=== PATIENT | male | born 1985 | race Caucasian/White ===

== ENCOUNTER 2020-10-22 11:11 | Emergency (ER) | payer SELFPAY ==
[2020-10-22 11:19] VITALS: BP 139/83; PULSE 97; TEMP 98.4; BMI 56.5
[2020-10-22] MEDS ORDERED: NAPROXEN 500 MG TABLET PO ONE (13:37)
[2020-10-22] MEDS ORDERED: NAPROXEN 500 MG TABLET ONE (13:44)
== END 2020-10-22 13:46 | disposition home or self-care (01) ==
LOC: JERFT 11:11 → JER 11:11 → JERFT 13:46
DX: M79.604 Pain in right leg (principal); E66.09 Other obesity due to excess calories
CPT/HCPCS: 93971-TC; 99283-25

== ENCOUNTER 2023-05-04 09:30 | Emergency (ER) | payer OTHER ==
[2023-05-04 09:33] VITALS: BP 134/70; PULSE 83; RESP 19; TEMP 98.1; BMI 39.9
[2023-05-04] MEDS ORDERED: ACETAMINOPHEN 500 MG TABLET (FP) PO ONE (10:35)
[2023-05-04] MEDS ORDERED: DIPHTH,PERTUSS(ACELL),TET 0.5 ML DISP.SYRIN IM ONE ×2 (10:35→11:27)
[2023-05-04] MEDS ORDERED: ACETAMINOPHEN 500 MG TABLET (FP) ONE (11:27)
== END 2023-05-04 12:53 | disposition short-term general hospital (02) ==
LOC: JERFT 09:30
PROC: 3E0234Z Introduction of Serum, Toxoid and Vaccine into Muscle, Percutaneous Approach (ICD-10-PCS; principal; 2023-05-04)
DX: R51.9 Headache, unspecified (principal); S01.21XA Laceration without foreign body of nose, initial encounter; S00.81XA Abrasion of other part of head, initial encounter; W31.2XXA Contact with powered woodworking and forming machines, initial encounter; Z20.822 Contact with and (suspected) exposure to COVID-19
CPT/HCPCS: 87635; 90471; 90715; 99285-25